=== PATIENT | female | born 1975 ===

== ENCOUNTER → 2020-01-05 | Outpatient (CLI) | payer OTHER ==
--- NOTE | 2020-01-05 13:02 | RAD ---
01/05/2020 EXAM: Ankle brachial index, bilateral lower extremity arterial duplex ultrasound INDICATION: Bilateral lower extremity pain COMPARISON STUDY: None Discussion: Right brachial pressure: 110 mmHg Left brachial pressure 106 mmHg Right ankle pressure: 100 Left ankle pressure: 116 Right AMAIRANI 0.9 Left AMAIRANI 1.1 Ultrasound evaluation of the major arteries of the bilateral lower extremities was also performed including color Doppler imaging spectral analysis. There is a focal elevation in velocity in the right popliteal artery measuring up to 350 cm/s. Distal to this waveform morphology remains normal, the velocities do decreased to 51 cm/s.. No major vessel occlusion or aneurysm is seen. No other focal hemodynamically significant stenosis is identified. IMPRESSION: 1. Normal ankle-brachial indices 2. Abnormal focal elevation in velocity in the right popliteal artery up to 349 cm/s, with normal distal waveform morphology. Degree of stenosis is unclear. Consider CT angiography for confirmation/further evaluation. Electronically signed by: Damien Lyon MD (01/05/2020 12:59 PM) [id number]
--- NOTE | 2020-01-05 14:15 | RAD ---
Bilateral lower extreme knee arterial duplex ultrasound study for bilateral leg pain. ABIs are also performed. TECHNIQUE AND FINDINGS: Bilateral ABIs are performed. Grayscale, color and spectral Doppler evaluation of the arteries of both lower extremities was also performed. The AMAIRANI on the right is 0.9 and on the left 1.1. AMAIRANI on the right is borderline. There is mild multifocal atherosclerosis bilaterally. Flow is triphasic within the bilateral common femoral, deep femoral, superficial femoral, popliteal, and posterior tibial arteries, the becomes biphasic within the bilateral peroneal and anterior tibial arteries. Both dorsalis pedis arteries are patent. There is an area of focal velocity elevation within the right popliteal artery to 349 cm/s, compared with proximal peak systolic velocity 124 cm/s. There is spectral broadening at this level as well, and a hemodynamically significant stenosis is suspected despite triphasic morphology. No focal velocity elevations are identified on the left. IMPRESSION: 1. Borderline AMAIRANI on the right with Doppler ultrasound suggestion of hemodynamically significant stenosis of the right popliteal artery. Electronically signed by: Cortes Lay MD (01/05/2020 2:12 PM) [id number]
== END | disposition home or self-care (01) ==
LOC: PF 07:31
PROVIDERS: ATTEND Family Medicine
DX: J44.9 Chronic obstructive pulmonary disease, unspecified (principal); M79.604 Pain in right leg; M79.605 Pain in left leg; I10 Essential (primary) hypertension
CPT/HCPCS: 93922; 93925; 94010